=== PATIENT | male | born 1945 | race Hispanic/Latino ===

== ENCOUNTER 2017-11-19 05:12 | Emergency (ER) | payer MEDICARE, OTHER ==
[2017-11-19 05:12] VITALS: BMI 27.3
[2017-11-19 05:31] VITALS: PULSE 89
--- NOTE | 2017-11-19 06:00 | C.PDOC ---
History Of Present Illness 71-year-old male brought in by EMS with complaints of pain to his hands. He states he was bit by a dog several years ago. Patient has history of schizophrenia. Patient talking to himself and poor historian. Denies any drug use besides smoking cigarette. No SI/HI. Time Seen by Provider: 11/19/17 05:32 Chief Complaint (Nursing): Pain, Chronic History Per: Patient History/Exam Limitations: no limitations Recent travel outside of the [place]: No Past Medical History Reviewed: Historical Data, Nursing Documentation, Vital Signs Vital Signs: Last Vital Signs Temp 98 F 11/19/17 05:28 Pulse 89 11/19/17 05:28 Resp 18 11/19/17 05:28 BP 132/86 11/19/17 05:28 Pulse Ox 98 11/19/17 06:40 - Medical History PMH: Bipolar Disorder, Schizophrenia Surgical History: No Surg Hx Family History: States: No Known Family Hx - Social History Hx Tobacco Use: Yes (light smoker) Hx Alcohol Use: Yes Hx Substance Use: No - Immunization History Hx Tetanus Toxoid Vaccination: No Hx Influenza Vaccination: No Hx Pneumococcal Vaccination: No Review Of Systems Except As Marked, All Systems Reviewed And Found Negative. Musculoskeletal: Positive for: Hand Pain (pain to bilateral hands) Psych: Positive for: Other (auditory hallucinations) Physical Exam - Physical Exam Appears: Non-toxic, No Acute Distress, Other (discheveled, speaking rapidly with flight of ideas) Skin: Warm, Dry, No Diaphoretic, No Pale, No Rash, No Ecchymosis Head: Atraumatic, Normacephalic Eye(s): bilateral: Normal Inspection, EOMI Nose: Normal Oral Mucosa: Moist Neck: Normal ROM Chest: Symmetrical Cardiovascular: Rhythm Regular, No Murmur Respiratory: Normal Breath Sounds, No Rales, No Rhonchi, No Wheezing Gastrointestinal/Abdominal: Soft Back: Normal Inspection Extremity: Normal ROM, No Tenderness, No Deformity, No Swelling Pulses: Left Radial: Normal, Right Radial: Normal Neurological/Psych: Normal Speech Disoriented To: Place, Time ED Course And Treatment O2 Sat by Pulse Oximetry: 98 (room air) Pulse Ox Interpretation: Normal Medical Decision Making Medical Decision Making: Patient with auditory hallucinations. schizophrenia, possible substance abuse Prior records reviewed patient was seen in ED 11/22/16 seeking fdc. Contact crisis for evaluation Will order labs for medical clearance. Disposition - Disposition Disposition Time: 07:00 Condition: STABLE - Clinical Impression Clinical Impression: Schizophrenia - Scribe Statement The provider has reviewed the documentation as recorded by the Scribe Christine Lowery All medical record entries made by the Scribe were at my direction and personally dictated by me. I have reviewed the chart and agree that the record accurately reflects my personal performance of the history, physical exam, medical decision making, and the department course for this patient. I have also personally directed, reviewed, and agree with the discharge instructions and disposition. Physician Patient Turnover Patient Signed Over To: Belle Bardales Handoff Comments: pending labs and crisis eval, final dispo
[2017-11-19 07:05] LABS: HEMOGLOBIN 13.1 g/dL (12.0-18.0); MEAN CELL VOLUME 89.5 fL (80.0-94.0); MEAN CORPUSCULAR HEMOGLOBIN 30.9 pg (27.0-31.0); MEAN CORPUSCULAR HGB CONC 34.6 g/dL (33.0-37.0); MEAN PLATELET VOLUME 12.3 fL (7.2-11.7); PLATELET COUNT 131 K/uL (130-400); RBC 4.24 Mil/uL (4.40-5.90); RED CELL DISTRIBUTION WIDTH 16.5 % (11.5-14.5); WHITE BLOOD COUNT 12.6 K/uL (4.8-10.8)
[2017-11-19 07:07] LABS: SQUAMOUS EPITHIAL 1 /hpf (0-5); URINE BACTERIA MANY (<OCC); URINE BILIRUBIN NEGATIVE (NEGATIVE); URINE BLOOD 3+ (NEGATIVE); URINE CLARITY Clear (Clear); URINE COLOR Yellow (YELLOW); URINE GLUCOSE (UA) NORMAL (Normal); URINE LEUKOCYTE ESTERASE NEG Leu/uL (Negative); URINE NITRATE NEGATIVE (NEGATIVE); URINE PROTEIN 2+ mg/dL (NEGATIVE)
[2017-11-19 07:14] LABS: ALB/GLOB RATIO 1.1 (1.0-2.1); ALBUMIN 4.5 g/dL (3.5-5.0); CALCIUM 9.6 mg/dl (8.6-10.4); GFR AFRICAN-AMERICAN > 60; GFR NON-AFRICAN AMERICAN > 60
[2017-11-19 07:18] LABS: BARBITURATES, UR NEGATIVE (NEGATIVE); BENZODIAZEPINES, UR NEGATIVE (NEGATIVE); OPIATES, UR NEGATIVE (NEGATIVE); PHENCYCLIDINE, UR NEGATIVE (NEGATIVE)
[2017-11-19 07:48] LABS: ALT/SGPT 18 U/L (21-72); AST/SGOT 35 U/L (17-59); BLOOD UREA NITROGEN 17 mg/dL (9-20)
[2017-11-19 08:23] LABS: LYMPH # 1.5 K/uL (1.0-4.3); MONO # 4.9 K/uL (0.0-0.8); NEUT # 6.2 K/uL (1.8-7.0)
[2017-11-19 08:26] LABS: ANISOCYTOSIS SLIGHT; BANDS 1 % (0-2); LYMPHOCYTE 16 % (20-40); MONOCYTE 37 % (0-10); NEUTROPHIL 46 % (50-75); PLATELET ESTIMATE NORMAL (NORMAL); TOTAL CELLS COUNTED 100; TOXIC GRANULATION PRESENT
[2017-11-19 08:27] LABS: LARGE PLATELETS PRESENT
--- NOTE | 2017-11-19 08:35 | RAD ---
Chest x-ray single frontal view History: Baseline film. Comparison: 11/11/2016 Findings: No focal infiltrate or effusion. Heart size within normal limits. Degenerative changes in the spine. Impression: No focal infiltrate or effusion.
[2017-11-19 11:11] VITALS: BP 130/76; RESP 17; TEMP 97.8; O2SAT 97
== END 2017-11-19 11:17 | disposition short-term general hospital (02) ==
LOC: C.ER 05:12
DX: F20.9 Schizophrenia, unspecified (principal); Z87.891 Personal history of nicotine dependence
CPT/HCPCS: 71045; 80053; 81001; 85025; 94770; 99285; G0480